=== PATIENT | female | born 1975 | race Hispanic/Latino ===

== ENCOUNTER 2018-06-29 18:24 | Emergency (ER) | payer OTHER, SELFPAY ==
[2018-06-29] MEDS ORDERED: ONDANSETRON HCL 4 MG/2 ML VIAL ONE (20:13)
[2018-06-29] MEDS ORDERED: FAMOTIDINE/PF 20 MG/2 ML VIAL IV ONE (20:14)
[2018-06-29 20:26] LABS: BASOPHILS % (AUTO) 0.8 % (0.0-5.0); EOSINOPHILS % (AUTO) 2.9 % (0.0-8.0); HEMATOCRIT 41.5 % (36-48); LYMPHOCYTES % (AUTO) 27.8 % (21.0-51.0); MEAN CORPUSCULAR HEMOGLOBIN 31.9 pg (27.0-33.0); MEAN CORPUSCULAR HGB CONC 33.7 g/dL (32.0-36.0); MEAN CORPUSCULAR VOLUME 94.5 fL (79-99); MONOCYTES % (AUTO) 8.2 % (3.0-13.0); NEUTROPHILS % (AUTO) 60.3 % (40.0-77.0); PLATELET COUNT (AUTO) 403 K/uL (130-400); RED BLOOD CELL COUNT(AUTO) 4.39 MIL/uL (4.00-5.50); RED CELL DISTRIBUTION WIDTH 14.3 % (11.0-15.5); WHITE BLOOD COUNT (AUTO) 13.6 K/uL (4.8-10.8)
[2018-06-29 20:32] LABS: HCG,QUAL RESULT NEGATIVE (NEGATIVE)
[2018-06-29 20:33] LABS: APPEARANCE,URINE Clear (CLEAR); BILIRUBIN,URINE Negative (NEGATIVE); COLOR,URINE Yellow (YELLOW); GLUCOSE, URINE (UA) Negative (NEGATIVE); KETONES,URINE 15 mg/dL (NEGATIVE); LEUKOCYTE ESTERASE ,URINE Negative (NEGATIVE); NITRATE,URINE Negative (NEGATIVE); OCCULT BLOOD,URINE Negative (NEGATIVE); PROTEIN,URINE Negative (NEGATIVE)
[2018-06-29 20:42] LABS: CREATININE 0.6 mg/dL (0.5-1.5); POTASSIUM 4.6 mmol/L (3.5-5.1)
[2018-06-29 20:52] LABS: ALBUMIN 3.6 g/dL (3.5-5.0); BILIRUBIN,DIRECT 0.1 mg/dL (0.0-0.3); BILIRUBIN,TOTAL 0.5 mg/dL (0.2-1.0); TOTAL PROTEIN, SERUM 7.7 g/dL (6.0-8.3)
== END 2018-06-29 21:25 | disposition home or self-care (01) ==
LOC: EDH 18:24
DX: K29.00 Acute gastritis without bleeding (principal); T40.695A Adverse effect of other narcotics, initial encounter; Z90.49 Acquired absence of other specified parts of digestive tract; Z90.710 Acquired absence of both cervix and uterus; Z90.81 Acquired absence of spleen; Y92.89 Other specified places as the place of occurrence of the external cause
CPT/HCPCS: 36415; 80048; 80076; 81003; 81025; 82550; 84484; 85025; 93005; 96374; 96375; 99285; J2405; J3490

== ENCOUNTER → 2019-09-06 | Outpatient (CLI) | payer OTHER | END | disposition home or self-care (01) | LOC: OIH 15:29 | PROVIDERS: ATTEND Nurse Practitioner Adult Health | DX: M54.2 Cervicalgia (principal); M40.40 Postural lordosis, site unspecified | CPT/HCPCS: 72040 ==

== ENCOUNTER 2021-02-18 13:09 | Inpatient (IN) | payer OTHER ==
[~2021-02-18] VITALS: Ht 157.5 cm; Wt 68.0 kg
[~2021-02-18 13:09] MED LIST: CIPR-278 PO; DOCU-116 PO; IBUP-2070 PO
[2021-02-18 14:01] LABS: BASOPHILS % (AUTO) 0.3 % (0.0-5.0); HEMATOCRIT 41.9 % (36-48); LYMPHOCYTES % (AUTO) 6.1 % (21.0-51.0); MEAN CORPUSCULAR HEMOGLOBIN 30.9 pg (27.0-33.0); MEAN CORPUSCULAR HGB CONC 33.9 g/dL (32.0-36.0); MEAN CORPUSCULAR VOLUME 91.1 fL (79-99); MONOCYTES % (AUTO) 6.8 % (3.0-13.0); NEUTROPHILS % (AUTO) 86.2 % (40.0-77.0); PLATELET COUNT (AUTO) 435 K/uL (130-400); RED CELL DISTRIBUTION WIDTH 14.4 % (11.0-15.5); WHITE BLOOD COUNT (AUTO) 26.9 K/uL (4.8-10.8)
[2021-02-18 14:11] LABS: CREATININE 0.7 mg/dL (0.5-1.5); POTASSIUM 3.6 mmol/L (3.5-5.1)
[2021-02-18 14:15] LABS: ALBUMIN 3.8 g/dL (3.5-5.0); BILIRUBIN,TOTAL 0.8 mg/dL (0.2-1.0); TOTAL PROTEIN, SERUM 8.6 g/dL (6.0-8.3)
[2021-02-18 14:17] LABS: INR 1.03 (0.85-1.15); PROTHROMBIN TIME 11.2 SEC (9.6-11.6)
[2021-02-18 14:18] LABS: PARTIAL THROMBOPLASTIN TIME 29.6 SEC (26.3-35.5)
[2021-02-18] MEDS ORDERED: 0.9%NACL 50ML 50 ML IV ONE (14:19)
[2021-02-18 14:24] LABS: APPEARANCE,URINE Cloudy (CLEAR); BILIRUBIN,URINE Negative (NEGATIVE); COLOR,URINE Dark Yellow (YELLOW); GLUCOSE, URINE (UA) Negative (NEGATIVE); KETONES,URINE >=160 mg/dL (NEGATIVE); LEUKOCYTE ESTERASE ,URINE Trace (NEGATIVE); NITRATE,URINE Negative (NEGATIVE); OCCULT BLOOD,URINE Trace (NEGATIVE); PH,URINE 6.5 (5.0-8.0); PROTEIN,URINE Trace mg/dL (NEGATIVE)
[2021-02-18 14:30] LABS: BACTERIA,URINE Few /HPF (None Seen); MUCUS,URINE Few LPF (None Seen); SQUAMOUS EPITHELIAL CELL,UR Moderate /HPF (0-2)
[2021-02-18] MEDS ORDERED: ONDANSETRON 4MG INJ IVP ONE (14:30)
[2021-02-18] MEDS ORDERED: ZOSYN 3.375GM +NS 50ML IV ONE (14:30)
[2021-02-18] MEDS ORDERED: MORPHINE 4 MG SYG IV ONE (14:30)
[2021-02-18] MEDS ORDERED: ZOSYN 3.375GM+NS 50ML 50 ML IV SCH (14:30)
[2021-02-18] MEDS: 0.9%NACL 1000ML 1,000 ML IV ONE ×2 (14:38→15:59)
[2021-02-18] MEDS ORDERED: IOHEXOL-350 75 ML VIAL IV ONE (14:55)
[2021-02-18] MEDS ORDERED: ONDANSETRON 4MG INJ IVP PRN (16:30)
[2021-02-18] MEDS: 0.9%NACL 1000ML 1,000 ML IV SCH (17:01)
[2021-02-18 20:05] VITALS: BP 114/67
[2021-02-18] MEDS: MORPHINE 2 MG SYG IVP PRN (20:18)
[2021-02-18] MEDS: ZOSYN 3.375GM +NS 50ML IV SCH (22:30)
[2021-02-18] MEDS ORDERED: LEVO150C4 PO (22:45)
[2021-02-18 23:07] VITALS: BP 99/50
[2021-02-19] VITALS (26 sets, daily range): BP systolic 85–123; BP diastolic 49–83
[2021-02-19] MEDS: MORPHINE 2 MG SYG IVP PRN ×4 (03:31→20:21)
[2021-02-19] MEDS: 0.9%NACL 1000ML 1,000 ML IV SCH ×3 (03:32→22:30)
[2021-02-19] MEDS: ZOSYN 3.375GM +NS 50ML IV SCH ×3 (06:45→22:34)
[2021-02-19] MEDS ORDERED: LIDOCAINE HCL 1% 20 ML VIAL ONE (07:19)
[2021-02-19] MEDS ORDERED: BUPIVACAINE/PF 0.25% 10ML VIAL IJ ONE (07:19)
[2021-02-19] MEDS ORDERED: LIDOCAINE PF 100MG/5ML (2%) SYRINGE 5ML ONE (07:47)
[2021-02-19] MEDS ORDERED: PROPOFOL 10 MG/ML 20ML VIAL IV ONE (07:47)
[2021-02-19] MEDS ORDERED: ROCURONIUM 10MG/1ML SYR 10 MG/ML ML ONE (07:48)
[2021-02-19] MEDS ORDERED: FENTANYL CITRATE PF 50 MCG/1 ML 2ML VIAL ONE ×3 (07:48→09:51)
[2021-02-19] MEDS ORDERED: MIDAZOLAM HCL 1 MG/ML 2ML VIAL ONE (07:51)
[2021-02-19] MEDS ORDERED: ONDANSETRON 4MG INJ ONE (08:24)
[2021-02-19] MEDS ORDERED: GLYCOPYRROLATE 1 MG/5 ML SYRINGE ONE (08:24)
[2021-02-19] MEDS ORDERED: NEOSTIGMINE 5MG/5ML SYR IV ONE (08:24)
[2021-02-19] MEDS ORDERED: MEPERIDINE-PF 25 MG/ML SYG ONE ×2 (10:37→11:03)
[2021-02-19] MEDS ORDERED: MORPHINE 2 MG SYG IVP PRN (12:30)
[2021-02-20 03:20] VITALS: BP 124/77
[2021-02-20] MEDS: MORPHINE 2 MG SYG IVP PRN (04:52)
[2021-02-20] MEDS: 0.9%NACL 1000ML 1,000 ML IV SCH ×2 (06:06→16:20)
[2021-02-20] MEDS: ZOSYN 3.375GM +NS 50ML IV SCH ×3 (06:19→22:30)
[2021-02-20 07:30] VITALS: BP 108/71
[2021-02-20] MEDS: LEVOTHYROXINE 150 MCG TABLET PO SCH (07:46)
[2021-02-20] MEDS ORDERED: BISACODYL 10 MG SUPP.RECT RC PRN (09:30)
[2021-02-20] MEDS: DOCUSATE SODIUM 100 MG CAP PO SCH ×2 (10:33→21:04)
[2021-02-20] MEDS: GABAPENTIN 100 MG CAPSULE PO SCH ×2 (10:33→18:41)
[2021-02-20] MEDS: ACETAMINOPHEN 325 MG TAB PO SCH ×2 (10:37→18:44)
[2021-02-20 11:40] VITALS: BP 123/86
[2021-02-20] MEDS: IBUPROFEN 600 MG TABLET PO SCH ×3 (14:29→21:07)
[2021-02-20 16:00] VITALS: BP 134/88
[2021-02-20 19:40] VITALS: BP 115/58
[2021-02-20 23:00] VITALS: BP 117/71
[2021-02-21] MEDS: ACETAMINOPHEN 325 MG TAB PO SCH ×3 (00:06→12:04)
[2021-02-21] MEDS: GABAPENTIN 100 MG CAPSULE PO SCH ×2 (01:01→09:06)
[2021-02-21 03:03] VITALS: BP 125/73
[2021-02-21] MEDS: IBUPROFEN 600 MG TABLET PO SCH ×2 (03:03→09:06)
[2021-02-21] MEDS: 0.9%NACL 1000ML 1,000 ML IV SCH (03:11)
[2021-02-21] MEDS: LEVOTHYROXINE 150 MCG TABLET PO SCH (06:27)
[2021-02-21] MEDS: ZOSYN 3.375GM +NS 50ML IV SCH (06:27)
[2021-02-21 07:25] LABS: HEMATOCRIT 33.7 % (36-48); MEAN CORPUSCULAR HEMOGLOBIN 30.5 pg (27.0-33.0); MEAN CORPUSCULAR HGB CONC 32.6 g/dL (32.0-36.0); MEAN CORPUSCULAR VOLUME 93.4 fL (79-99); RED BLOOD CELL COUNT(AUTO) 3.61 MIL/uL (4.00-5.50); RED CELL DISTRIBUTION WIDTH 14.6 % (11.0-15.5); WHITE BLOOD COUNT (AUTO) 10.9 K/uL (4.8-10.8)
[2021-02-21 08:00] LABS: ALBUMIN 2.8 g/dL (3.5-5.0); BILIRUBIN,TOTAL 0.3 mg/dL (0.2-1.0); CREATININE 0.7 mg/dL (0.5-1.5); POTASSIUM 3.5 mmol/L (3.5-5.1); TOTAL PROTEIN, SERUM 6.7 g/dL (6.0-8.3)
[2021-02-21 08:15] VITALS: BP 122/70
[2021-02-21] MEDS: DOCUSATE SODIUM 100 MG CAP PO SCH (09:06)
[2021-02-21] MEDS ORDERED: ACET-66 PO (10:51)
[2021-02-21] MEDS ORDERED: GABA300S PO (10:51)
[2021-02-21 12:00] VITALS: BP 126/71
== END 2021-02-21 13:20 | disposition home or self-care (01) | DRG 231 ==
LOC: EDH 13:09 → EDHIP 16:13 → UNDOADMIN 16:16 → EDHIP 16:16 → WSH 19:58
PROVIDERS: ADMIT Internal Medicine Hematology & Oncology; ATTEND Internal Medicine Hematology & Oncology
PROC: 0DBH4ZZ Excision of Cecum, Percutaneous Endoscopic Approach (ICD-10-PCS; 2021-02-19)
PROC: 0DTJ4ZZ Resection of Appendix, Percutaneous Endoscopic Approach (ICD-10-PCS; principal; 2021-02-19 08:29)
DX: K35.80 Unspecified acute appendicitis (principal); D69.3 Immune thrombocytopenic purpura; E03.9 Hypothyroidism, unspecified; Z20.822 Contact with and (suspected) exposure to COVID-19; K66.0 Peritoneal adhesions (postprocedural) (postinfection); Z90.81 Acquired absence of spleen; Z98.84 Bariatric surgery status; Z90.710 Acquired absence of both cervix and uterus; Z90.49 Acquired absence of other specified parts of digestive tract
CPT/HCPCS: 36415; 74176; 74177; 76830; 80053; 81001; 81025; 82150; 82550; 83605; 83690; 84484; 85025; 85027; 85610; 85730; 87040; 87088; 87635; 93005; 96372; A4344; C9803; G0378; J1885; J2001; J2175; J2250; J2270; J2405; J2543; J2704; J2710; J3010; J3490; J7030; J7120; Q9967

== ENCOUNTER 2022-06-01 22:35 | Emergency (ER) | payer OTHER ==
[~2022-06-01] VITALS: Ht 157.5 cm; Wt 71.7 kg
[~2022-06-01 22:35] MED LIST changes: +ACET-66 PO; -CIPR-278 PO; +GABA300S PO; +LEVO150C4 PO
[2022-06-01 23:08] LABS: BASOPHILS % (AUTO) 0.8 % (0.0-5.0); EOSINOPHILS % (AUTO) 4.1 % (0.0-8.0); HEMATOCRIT 40.3 % (36-48); LYMPHOCYTES % (AUTO) 45.5 % (21.0-51.0); MEAN CORPUSCULAR HEMOGLOBIN 31.2 pg (27.0-33.0); MEAN CORPUSCULAR HGB CONC 33.3 g/dL (32.0-36.0); MEAN CORPUSCULAR VOLUME 93.7 fL (79-99); MONOCYTES % (AUTO) 8.8 % (3.0-13.0); NEUTROPHILS % (AUTO) 40.6 % (40.0-77.0); PLATELET COUNT (AUTO) 408 K/uL (130-400); RED CELL DISTRIBUTION WIDTH 15.1 % (11.0-15.5); WHITE BLOOD COUNT (AUTO) 10.7 K/uL (4.8-10.8)
[2022-06-01 23:09] LABS: APPEARANCE,URINE CLEAR (CLEAR); BILIRUBIN,URINE NEGATIVE (NEGATIVE); COLOR,URINE LIGHT-YELLOW (YELLOW); GLUCOSE, URINE (UA) NEGATIVE (NEGATIVE); KETONES,URINE NEGATIVE (NEGATIVE); LEUKOCYTE ESTERASE ,URINE NEGATIVE Leu/uL (NEGATIVE); NITRATE,URINE NEGATIVE (NEGATIVE); PH,URINE 5.5 (5.0-8.0); PROTEIN,URINE NEGATIVE (NEGATIVE); UROBILINOGEN,URINE 0.2 mg/dL (0.2-1.0)
[2022-06-01 23:13] LABS: BACTERIA,URINE RARE /HPF (None Seen); MUCUS,URINE RARE LPF (None Seen); RBC,URINE 0-1 /HPF (0-1); SQUAMOUS EPITHELIAL CELL,UR RARE /HPF (0-2)
[2022-06-01 23:19] LABS: CREATININE 0.7 mg/dL (0.5-1.5); POTASSIUM 3.6 mmol/L (3.5-5.1)
[2022-06-01 23:24] LABS: ALBUMIN 3.6 g/dL (3.5-5.0); TOTAL PROTEIN, SERUM 7.5 g/dL (6.0-8.3)
[2022-06-01] MEDS ORDERED: IBUP-1493 PO (23:56)
[2022-06-02 00:47] VITALS: BP 122/72
== END 2022-06-02 00:49 | disposition home or self-care (01) ==
LOC: EDH 22:35
DX: M94.0 Chondrocostal junction syndrome [Tietze] (principal); R07.89 Other chest pain; I45.10 Unspecified right bundle-branch block; E03.9 Hypothyroidism, unspecified; Z90.49 Acquired absence of other specified parts of digestive tract; Z90.710 Acquired absence of both cervix and uterus; Z79.899 Other long term (current) drug therapy; Z79.1 Long term (current) use of non-steroidal anti-inflammatories (NSAID)
CPT/HCPCS: 36415; 71045; 80053; 81001; 81025; 83880; 84484; 85025; 85378; 93005

== ENCOUNTER 2022-09-27 00:40 | Emergency (ER) | payer BC ==
[~2022-09-27] VITALS: Ht 160 cm; Wt 79.4 kg
[~2022-09-27 00:40] MED LIST changes: -GABA300S PO; +GABA300S3 PO; +IBUP-1493 PO; -IBUP-2070 PO
[2022-09-27] MEDS ORDERED: KETOROLAC 30MG VIAL (30MG/ML) IVP ONE (01:30)
[2022-09-27] MEDS ORDERED: DiphenhydrAMINE HCL 50 MG/ML VIAL IV ONE (01:30)
[2022-09-27] MEDS ORDERED: METOCLOPRAMIDE 10 MG/2 ML VIAL IVP ONE (01:30)
[2022-09-27] MEDS ORDERED: MORPHINE 4 MG SYG IVP ONE (01:30)
[2022-09-27 01:39] LABS: BASOPHILS % (AUTO) 0.6 % (0.0-5.0); EOSINOPHILS % (AUTO) 3.2 % (0.0-8.0); LYMPHOCYTES % (AUTO) 33.3 % (21.0-51.0); MEAN CORPUSCULAR HEMOGLOBIN 31.5 pg (27.0-33.0); MEAN CORPUSCULAR HGB CONC 33.5 g/dL (32.0-36.0); MEAN CORPUSCULAR VOLUME 94.1 fL (79-99); MONOCYTES % (AUTO) 10.1 % (3.0-13.0); NEUTROPHILS % (AUTO) 52.6 % (40.0-77.0); PLATELET COUNT (AUTO) 432 K/uL (130-400); RED BLOOD CELL COUNT(AUTO) 4.25 MIL/uL (4.00-5.50); RED CELL DISTRIBUTION WIDTH 14.8 % (11.0-15.5); WHITE BLOOD COUNT (AUTO) 11.7 K/uL (4.8-10.8)
[2022-09-27 01:54] LABS: CREATININE 0.7 mg/dL (0.5-1.5); POTASSIUM 3.9 mmol/L (3.5-5.1)
[2022-09-27 01:58] LABS: ALBUMIN 3.6 g/dL (3.5-5.0); TOTAL PROTEIN, SERUM 7.7 g/dL (6.0-8.3)
[2022-09-27] MEDS ORDERED: IBUP-1493 PO (02:38)
[2022-09-27 04:40] VITALS: BP 115/62; PULSE 78; RESP 16; O2SAT 98
== END 2022-09-27 04:24 | disposition home or self-care (01) ==
LOC: EDH 00:40
DX: G43.909 Migraine, unspecified, not intractable, without status migrainosus (principal); Z79.899 Other long term (current) drug therapy
CPT/HCPCS: 99284; 96374; 70450; 96375; 80053; 85025; 36415; J1200; J1885; J2765

== ENCOUNTER 2024-02-08 09:00 | Emergency (ER) | payer BC ==
[~2024-02-08] VITALS: Ht 160 cm; Wt 74.4 kg
[~2024-02-08 09:00] MED LIST changes: +ONDA-104 PO
[2024-02-08] MEDS: LIDOCAINE 5% TOPICAL PATCH TP ONE (10:13)
[2024-02-08] MEDS: ketOROlac 60 MG VIAL (30MG/ML) IM ONE (10:14)
--- NOTE | 2024-02-08 10:15 | ERN ---
ED Note History of Present Illness Stated Complaint: LT SHOULDER PAIN Chief Complaint: Shoulder Injury/Pain Time Seen by MD: 09:02 Dictation: 48-year-old female presents to the ED for evaluation of left shoulder pain 1 day ago. Patient reports she was stretching when she felt a pop and has been unable to move it without pain since then. Allergies: Coded Allergies: No Known Drug Allergies (Unverified Allergy, Unknown, 02/17/21) Home Meds Active Scripts Cyclobenzaprine HCl (Cyclobenzaprine HCl) 5 Mg Tablet, 5 MG PO BID for 5 Days, #10 TAB Prov:MUKUL WALLACE MD 02/08/24 Ondansetron HCl (Ondansetron HCl) 4 Mg Tablet, 4 MG PO TIDP PRN for VOMITING, #20 TAB Prov:KAI CARTAGENA MD 06/23/23 Ibuprofen (Motrin/Advil) 800 Mg Tab, 800 MG PO TID, #30 TAB Prov:KAI CARTAGENA MD 06/23/23 Docusate Sodium (Colace) 100 Mg Capsule, 100 MG PO BID, #20 CAP 0 Refills Prov:NAY GUTIERREZ MD 02/17/21 Reported Medications Acetaminophen (Tylenol) 500 Mg Tab, 1000 MG PO Q6HPRN PRN for PAIN LEVEL 7 TO 10, TAB 02/21/21 Gabapentin (Gabapentin) 300 Mg/6 Ml Solution, 300 MG PO TID, ML 02/21/21 Levothyroxine Sodium (Levothyroxine) 150 Mcg Capsule, 150 MCG PO AM, CAP 02/18/21 Past Medical History Past Medical History: Hypothyroid Additional Past Medical Hx: NO SPLEEN, THYROID PROBLEM Surgical History: Appendectomy, Hysterectomy, Cholecystectomy Surgical History Other: SPLENECTOMY Family History: HTN Social History: Negative, Lives with family Review of System Dictation Constitutional: Negative for fever,chills, and weight loss Eyes: Negative for injury, pain,redness, and discharge ENT: Negative for injury,pain or swelling Cardiovascular: Negative for chest pain, palpitations, and edema Respiratory: Negative for shortness of breath, cough, and wheezing, Abdomen/GI: Negative for abdominal pain, nausea, vomiting, diarrhea, and constipation Back: Negative for injury and pain : Negative for injury, bleeding and discharge MS/Extremity: Positive for left shoulder pain Negative for injury and deformity Skin: Negative for rash, and discoloration Neuro: Negative for headache, weakness, numbness, tingling, and seizure Psych: Negative for suicide ideation, homicidal ideation, and hallucinations Initial Vital Sign VS Vital Signs Date Time Temp Pulse Resp B/P (MAP) Pulse Ox O2 Delivery O2 Flow Rate FiO2 02/08/24 09:02 97.5 89 20 115/80 99 Room Air 0 02/08/24 09:33 21 Physical Exam Dictation General: awake, alert, NAD Head/Face: Normocephalic, atraumatic Eyes: PERRL, EOMI, vision at baseline ENT: oral cavity clear, TMs clear, no signs of infection Neck: Trachea midline, supple, no nuchal rigidity Cardiovascular: RRR, normal S1/S2, No MRGs, no JVD Respiratory: CTAB, no respiratory distress, No rales or wheezes Abdomen: Soft, non-tender, non-distended, normal bowel sounds, no guarding or rebound. Skin: Warm, dry, normal turgor, no rash MS/Extremity: Pulses equal, no cyanosis, neurovascular intact, left shoulder tenderness, range of motion is limited due to pain Neuro: COAx4, GCS 15, strength 5/5, CN 2-12 intact, normal cerebellar exam, normal gait, Psych: Normal behavior, mood, and affect normal ED Course ED Course Orders Procedure Category Date Status Time Shoulder Comp 2+Vws Lt RAD 02/08/24 Taken 09:03 Ketorolac 60mg/2ml PHA 02/08/24 Complete (Toradol 60mg/2ml) 10:30 Lidocaine (Lidoderm PHA 02/08/24 Complete Patch 5%) 10:30 Current Medications Medications (Trade) Dose Ordered Sig/Shanda Route PRN Reason Start Time Stop Time Status Last Admin Dose Admin Ketorolac Tromethamine (toRADol 60MG/ 2ML) 30 mg ONCE ONCE IM 02/08/24 10:30 02/08/24 10:31 DC 02/08/24 10:14 Lidocaine (Lidoderm Patch 5%) 1 patch ONCE ONCE TP 02/08/24 10:30 02/08/24 10:31 DC 02/08/24 10:13 Vital Signs Date Time Temp Pulse Resp B/P (MAP) Pulse Ox O2 Delivery O2 Flow Rate FiO2 02/08/24 10:51 98.1 78 18 127/63 97 Room Air* 0 21 02/08/24 09:33 98.8 80 20 124/60 97 Room Air* 0 21 02/08/24 09:02 97.5 89 20 115/80 99 Room Air 0 Medical Decision Making MDM MDM: Differential diagnosis: Left shoulder strain, fracture Previous outside records reviewed: Old ER visits. Need for hospitalization: Patient does not meet criteria for hospitalization. Need for emergency major/minor surgery: No Patient's prior external medical records from other ER visits were reviewed by me as indicated. Prior testing and results from previous visits were reviewed. Prior tests were taken into account with medical decision making and resource utilization, independent historian/historians were used to obtain complete medical history. I independently interpreted the test that were performed, results were reviewed by me and considered findings on radiology if ordered. Medical management and examination interpretation discussions were had by me with other qualified healthcare professionals as indicated for the patient's care. DX & DISP Disposition: Discharge Departure Impression: Primary Impression: Left shoulder strain Condition: Stable Scripts Cyclobenzaprine HCl (Cyclobenzaprine HCl) 5 Mg Tablet 5 MG PO BID for 5 Days, #10 TAB Prov: MUKUL WALLACE MD 02/08/24 Referrals: YANY MCDANIEL PA-C (PCP) KELLY GRIFFITHS MD I have reviewed, & agreed with my scribe's, documentation. (Entered by Shelia Stewart, acting as a scribe for Dr. Wallace) I personally scribed for MUKUL WALLACE MD ([email or web address]) on 02/08/24 at 10:15. Electronically submitted by Shelia Stewart ([email or web address]). I personally scribed for MUKUL WALLACE MD ([email or web address]) on 02/08/24 at 10:58. Electronically submitted by Shelia Stewart ([email or web address]). MUKUL WALLACE MD Feb 08, 2024 10:15
--- NOTE | 2024-02-08 10:19 | NUR ---
PATIENT IN PAIN. PATIENT MEDICATED AT THIS TIME AND ARM PLACED IN SLING FOR COMFORT.
[2024-02-08 10:51] VITALS: BP 127/63; PULSE 78; RESP 18; TEMP 98.1; O2SAT 97
[2024-02-08] MEDS ORDERED: CYCL5TAB3 PO (10:54)
--- NOTE | 2024-02-08 11:23 | HMCIMG ---
SHOULDER COMP 2+VWS LT HISTORY: Injury COMPARISON: 02/08/2024 TECHNIQUE: 2 images of left shoulder were FINDINGS: There is no acute displaced fracture or dislocation. Degenerative changes are seen. IMPRESSION: 1. Findings as described above.
== END 2024-02-08 11:00 | disposition home or self-care (01) ==
LOC: EDH 09:00
DX: S46.912A Strain of unspecified muscle, fascia and tendon at shoulder and upper arm level, left arm, initial encounter (principal); E03.9 Hypothyroidism, unspecified; Z79.1 Long term (current) use of non-steroidal anti-inflammatories (NSAID); Z79.899 Other long term (current) drug therapy; Z90.49 Acquired absence of other specified parts of digestive tract; Z90.710 Acquired absence of both cervix and uterus; W18.39XA Other fall on same level, initial encounter; Y93.89 Activity, other specified; Y92.89 Other specified places as the place of occurrence of the external cause; Y99.8 Other external cause status
CPT/HCPCS: 99284; 73030; 96372; J1885; 90471